=== PATIENT | male | born 1960 | race Caucasian/White ===

== ENCOUNTER 2020-06-14 14:31 | Emergency (ER) | payer OTHER ==
[~2020-06-14] VITALS: Ht 185.4 cm; Wt 97.5 kg
[2020-06-14 16:16] VITALS: BP 122/98
== END 2020-06-14 17:06 | disposition home or self-care (01) ==
LOC: ER 14:31
DX: M25.461 Effusion, right knee (principal); Z88.0 Allergy status to penicillin; F17.210 Nicotine dependence, cigarettes, uncomplicated
CPT/HCPCS: 73562